=== PATIENT | female | born 1990 | race Caucasian/White ===

== ENCOUNTER 2017-01-10 19:01 | Emergency (ER) | payer SELFPAY ==
[~2017-01-10 19:01] MED LIST: HARD NAILS PO; LANTUS SC; LEVAQUIN750 MG; NOVOLOG SC
[2017-01-10 19:34] LABS: ASCORBIC ACID (UR NOT ORDER) 40 (NEG); BILIRUBIN, URINE NEGATIVE (NEG); ER URINALYSIS TAT 0 Hrs 09 Mins; KETONE, URINE TRACE MG/DL (NEG); LEUKOCYTE ESTERASE(NOT OR NEG (NEG); NITRITE (URINE) NEG (NEG); WBC (NOT ORDERED) (RFLEX) 1 (0-5)
== END 2017-01-10 21:12 | disposition home or self-care (01) ==
LOC: ER 19:01
PROVIDERS: Physician Assistant
DX: M25.552 Pain in left hip (principal); M54.5 Low back pain; E10.9 Type 1 diabetes mellitus without complications; Z91.038 Other insect allergy status; Z88.1 Allergy status to other antibiotic agents; Z79.2 Long term (current) use of antibiotics
CPT/HCPCS: 72100; 73502-LT; 81001; 84703; 96372; 99284; J2800